=== PATIENT | female | born 1935 | race Caucasian/White ===

== ENCOUNTER 2019-07-26 02:13 | Emergency (ER) | payer OTHER ==
[~2019-07-26] VITALS: Ht 157.5 cm; Wt 54.4 kg
[~2019-07-26 02:13] MED LIST: CIPRO500 MG PO; FLAGYL500 MG PO; GLUCOPHAGE1000 MG PO; LISINOPRIL20 MG PO; MIRALAX17 GM PO; NORCO 5-325 TA1 EACH PO; NORVASC5 MG PO; OXYBUTYNIN 5 MG5 M2 PO; VITAMIN B-12500 MCG PO; VITAMINC500 PO
[2019-07-26 09:30] VITALS: BP 153/81
== END 2019-07-26 09:30 | disposition home or self-care (01) ==
LOC: ER 02:13
DX: K59.00 Constipation, unspecified (principal); I10 Essential (primary) hypertension; E11.9 Type 2 diabetes mellitus without complications; Z88.0 Allergy status to penicillin; Z79.899 Other long term (current) drug therapy; Z79.2 Long term (current) use of antibiotics

== ENCOUNTER 2019-07-29 03:34 | Emergency (ER) | payer OTHER ==
[~2019-07-29] VITALS: Ht 157.5 cm; Wt 59.4 kg
[2019-07-29] MEDS ORDERED: ASPIRIN325 PO (03:49)
[2019-07-29] MEDS ORDERED: VITAMIN B-121000 MC2 PO (03:51)
[2019-07-29] MEDS ORDERED: CITIRIZINE PO (03:52)
[2019-07-29] MEDS ORDERED: DETROL LA4 MG PO (03:53)
[2019-07-29] MEDS ORDERED: CRANBERRY200 MG PO (03:53)
[2019-07-29] MEDS ORDERED: FLONASE 0.05%50 MCG NASAL (03:55)
[2019-07-29] MEDS ORDERED: NEURONTIN 300M300 M2 PO (03:56)
[2019-07-29] MEDS ORDERED: LOVASTATIN 20 M20 MG PO (03:57)
[2019-07-29] MEDS ORDERED: MECLIZINE HCL25 MG PO (03:58)
[2019-07-29 04:15] LABS: ABSOLUTE NEUTROPHILS 5.5 thou/uL (1.4-8.2); BASOPHILS 1.1 % (0.0-2.0); EOSINOPHILS 2.2 % (0.0-3.0); LYMPHOCYTES 17.2 % (24.0-44.0); MCH 32.1 pg (26.0-34.0); MCHC 33.4 g/dL (28.0-37.0); MCV 96.1 fL (80.0-100.0); MONOCYTES 8.4 % (1.0-8.0); PLATELET COUNT 205 thou/uL (150-400); POLYS 71.1 % (36.0-66.0); RBC 3.75 mil/uL (4.20-5.00); RDW 12.9 % (10.5-14.5); WBC 7.7 thou/uL (4.0-11.0)
[2019-07-29 04:29] LABS: CALCIUM 9.1 mg/dL (8.5-10.1); CREATININE 1.3 mg/dL (0.6-1.0); POTASSIUM 4.3 mmol/L (3.5-5.1)
[2019-07-29 04:35] LABS: ALBUMIN 3.5 g/dL (3.4-5.0); TOTAL BILIRUBIN 0.4 mg/dL (<0.1-1.0); TOTAL PROTEIN 7.2 g/dL (6.4-8.2)
[2019-07-29 05:10] VITALS: BP 117/53
[2019-07-29] MEDS ORDERED: DULCOLAX STOOL100 M1 PO (06:07)
[2019-07-29] MEDS ORDERED: ANUSOL-HC25 MG RECTAL (06:38)
== END 2019-07-29 08:21 | disposition home or self-care (01) ==
LOC: ER 03:34
PROVIDERS: Emergency Medicine
DX: K59.00 Constipation, unspecified (principal); I10 Essential (primary) hypertension; E11.9 Type 2 diabetes mellitus without complications; Z88.0 Allergy status to penicillin; Z88.8 Allergy status to other drugs, medicaments and biological substances